=== PATIENT | female | born 1950 | race Caucasian/White ===

== ENCOUNTER → 2021-09-01 11:33 | Outpatient (CLI) | payer MEDICARE, OTHER, SELFPAY | PROVIDERS: PCP Physician Assistant; Referring Provider Physician Assistant; Visit Provider Physician Assistant | DX: Z13.820 Encounter for screening for osteoporosis; Z78.0 Asymptomatic menopausal state; M81.0 Age-related osteoporosis without current pathological fracture; Z79.890 Hormone replacement therapy; Z90.710 Acquired absence of both cervix and uterus | CPT/HCPCS: 77080 ==

== ENCOUNTER → 2021-09-12 13:00 | Outpatient (CLI) | payer MEDICARE, OTHER, SELFPAY ==
--- NOTE | 2021-09-12 | DI.CT.S_ITS ---
PROCEDURE: CT SOFT TISSUE NECK W CON INDICATIONS: Localized swelling, mass and lump, unspecified TECHNIQUE: After the administration of intravenous contrast, 3.0 mm axial sections acquired from the sella to the aortic arch. Additional oblique axial 3.0 mm sections acquired through the pharynx. 3 mm thick coronal and sagittal reformats were generated. For radiation dose reduction, the following was used: automated exposure control. COMPARISON: None. FINDINGS: Image quality: Excellent. Lymph nodes: There is a conglomerated group of lymph nodes seen within the right supraclavicular region that measures at least 5.8 x 3.6 cm in greatest axial dimension. There is partial visualization of mediastinal lymph nodes, with a group seen within the right superior mediastinum measuring 4.3 x 3 cm. Mild mass effect of is seen upon the trachea, which is slightly deviated to the left. Vessels: Visualized vasculature appears patent. Neck spaces: The oropharynx, nasopharynx, and pharynx demonstrate no mucosal lesions. The vocal cords, false vocal cords, pyriform sinuses, epiglottis, vallecula, and tongue base all appear normal. Extramucosal spaces appear unremarkable. Glands: The parotid and submandibular glands appear normal. Thyroid gland demonstrates no significant abnormality. Miscellaneous: Visualized brain and orbits appear normal. Lung apices appear clear. Superficial soft tissues appear normal. Bones: No suspicious bony lesions. Visualized sinuses and mastoids appear unremarkable. [id number] cervical spine degenerative changes are seen. IMPRESSION: Metastatic lymph nodes until proven otherwise within the right supraclavicular region and partially visualized within the right superior mediastinum. In this patient with prior mastectomy, metastatic breast cancer is considered to be most likely. Please consider additional workup, beginning with a CT with IV and oral contrast of the chest, abdomen, and pelvis. Dictated by: Saran Lezama M.D. on 09/12/2021 at 15:55 Approved by: Saran Lezama M.D. on 09/12/2021 at 15:58
--- NOTE | 2021-09-12 13:06 | DI.CT.S_ITS ---
PROCEDURE: CT CHEST W CON INDICATIONS: Localized swelling, mass and lump, unspecified TECHNIQUE: After the administration of intravenous contrast, 5 mm thick sections acquired from the pulmonary apices to the posterior costophrenic angles. 1 mm axial lung, 5 mm thick coronal and sagittal reformats and 7 mm axial MIP were acquired. For radiation dose reduction, the following was used: automated exposure control, adjustment of mA and/or kV according to patient size. COMPARISON: None. FINDINGS: Image quality: Excellent. Lungs and pleura: Mild leftward deviation of the mid trachea due to adenopathy. Mild central bronchial wall thickening bilaterally. No dense alveolar opacities. Irregular interstitial thickening and nodularity present in the medial right upper lobe. There are few calcified nodules in the right middle lobe and occasionally in the left lung. Platelike atelectatic changes posteriorly at both lung bases. No pleural effusions Mediastinum: The heart size is normal. There is a small anteriorly layering pericardial effusion or pericardial thickening. Aortic valvular calcification and mild coronary artery calcification. There is bulky right mediastinal adenopathy. Right hilar and subcarinal adenopathy are also present. Scattered calcifications within lymph nodes are seen. Suzy mass extends within the superior mediastinum to partially surround right brachiocephalic and left common carotid artery. There is mass effect on the superior vena cava causing narrowing. The aortic arch demonstrates moderate atherosclerotic calcification. Pulmonary arteries are normal caliber. The esophagus is normal without hiatal hernia. Bones and chest wall: There is bulky adenopathy at the right supraclavicular region with a masslike conglomeration of lymph nodes together measuring about 5.5 x 3.4 cm there is mass-effect on the adjacent vasculature, right thyroid lobe, and minimal mass effect on the trachea. There is also high right paratracheal lymph node measuring 1.5 cm in short axis. No axillary adenopathy. Venous varices along the anterior left upper chest. No suspicious bone lesions seen. Abdomen: Numerous calcifications are present in the spleen and occasional calcifications seen in the liver. Heavy atherosclerotic calcification of the aorta and branch arteries. IMPRESSION: 1. Bulky right supraclavicular, mediastinal, and right hilar adenopathy. Given recent diagnosis of neoplasm, metastatic disease is most likely. 2. Coarse nodular calcifications, granulomas in the spleen, liver, and both lungs suggesting exposure to prior granulomatous disease. 3. Small pericardial effusion. 4. Nonspecific reticulonodular focus in the medial right upper lobe. Continued attention to this area on subsequent scans is recommended. 5. Mild bronchial wall thickening. Correlate with acute or chronic bronchitis. Dictated by: Felipa Machado M.D. on 09/12/2021 at 18:19 Approved by: Felipa Machado M.D. on 09/12/2021 at 18:32
== END ==
PROVIDERS: PCP Internal Medicine; Referring Provider Physician Assistant; Visit Provider Physician Assistant
DX: C77.0 Secondary and unspecified malignant neoplasm of lymph nodes of head, face and neck (principal); C80.1 Malignant (primary) neoplasm, unspecified; M47.812 Spondylosis without myelopathy or radiculopathy, cervical region; M54.2 Cervicalgia; R93.89 Abnormal findings on diagnostic imaging of other specified body structures; Z90.10 Acquired absence of unspecified breast and nipple
CPT/HCPCS: 70491; 71260

== ENCOUNTER → 2021-09-26 11:19 | Outpatient (CLI) | payer MEDICARE, OTHER, SELFPAY ==
[2021-09-26 12:00] LABS: COVID19 -Nasal RAPID Negative (Negative)
== END ==
PROVIDERS: Family Provider Physician Assistant; PCP Internal Medicine; Visit Provider Surgery
DX: Z20.822 Contact with and (suspected) exposure to COVID-19 (principal); Z01.812 Encounter for preprocedural laboratory examination
CPT/HCPCS: 87635; C9803

== ENCOUNTER 2021-09-27 12:25 | Day surgery (SDC) | payer MEDICARE, OTHER, SELFPAY ==
[2021-09-27] VITALS (7 sets, daily range): BP systolic 117–162; BP diastolic 50–63; PULSE 60–73; RESP 14–16; TEMP 36.3–36.6; O2SAT 94–98; BMI 21.6
--- NOTE | 2021-09-27 | PATH_ITS ---
[facility] Accession Number: [id number] No. of containers..02 Tissue 04 Unknown Storage/container code(s) . 01 Material submitted: . PART A: lymph node - RIGHT NECK LYMPH NODE FORMALIN PART B: lymph node - RIGHT NECK LYMPH NODE B-FIX . 01 Clinical history: . EXCISIONAL BX OF R NECK LYMPH NODE . 01 Diagnosis: A. Lymph Node, Right Side of Neck, Excisional Biopsy: Metastatic high-grade neuroendocrine carcinoma (see comment). . B. Lymph Node, Right Side of Neck, Excisional Biopsy: Metastatic high-grade neuroendocrine carcinoma (see comment). [facility] 10/05/2021 1521 Local . 01 Comment: Both of the specimens A and B show similar morphologic features consisting of a small cell undifferentiated malignancy with extensive crush artifact and individual tumor cell necrosis. *Immunostains are performed on blocks A and B, with the controls stained appropriately. The tumor shows the following results: . Block A: Synaptophysin: Uniformly positive. CD56: Uniformly positive. TTF1: Focaly positive. . Block B: Broad spectrum cytokeratins (PATTI): Uniformly positive, perinuclear dot-like pattern. Cytokeratin 7: Uniformly positive, perinuclear dot-like pattern. Cytokeratin 20: Negative. Ki-67: Approximately 50%. P40: Negative. GATA3: Negative. Estrogen receptor: Negative. PAX-8: Negative. CDX2: Negative. . These results, in conjunction with the morphologic features, are considered supportive of the interpretation of a high-grade neuroendocrine carcinoma. Specifically, this impression is based on the pattern of staining seen with PATTI and cytokeratin 7 in conjunction with high level coexpression of the neuroendocrine markers synaptophysin and CD56. In this case, expression with the lung marker TTF1 raises the suspicion for origin from a lung primary; however, it is worthy to note that TTF1 loses specificity in the setting of neuroendocrine neoplasms and may not be indicative of pulmonary origin. Furthermore, there is no evidence for metastatic deposit from the patient's reported breast carcinoma (negative GATA3/ER) and there is no evidence for a metastatic carcinoma from gastrointestinal tract (negative CDX2) or [employer] tract (negative PAX-8). Also, there is no evidence for squamous differentiation (negative p40). . The results of this case are verbally provided by Dr. Liriano to medical collections specialist Olamide on 10/05/2021 at 1:00 p.m. . * This test was developed and its performance characteristics determined by [facility]. It has not been cleared or approved by the U.S. Food and Drug Administration. The FDA has determined that such clearance or approval is not necessary. This test is used for clinical purposes. It should not be regarded as investigational or for research. . 01 Electronically signed: . Selina Liriano MD, Pathologist NPI- [id number] . 01 Gross description: . A. Received in formalin in a specimen container, labeled with the patient's name and medical record number, right neck lymph node, is an aggregate of four irregularly shaped tabor soft tissue fragments that measure 1.5 x 1.3 x 0.4 cm. The specimen is entirely submitted in cassette A1. B. Received in formalin in a specimen container, labeled with the patient's name and medical record number, right lymph node, is an aggregate of four irregularly shaped pink soft tissue fragments that measure 1.2 x 0.7 x 0.4 cm. The specimen is entirely submitted in cassette B1. ([id number]) . Specimen in alcohol and two slides, respectively. Transferred to cytology for further processing. (KV:[id number]) /MRV 09/29/2021 [facility] Local . 01 Pathologist provided ICD-10: R59.1 . 01 CPT . 134662, 012280, Q04259, [id number] Performed at: 01 [facility] [address] [place] [address], [place], [place] [id number] MD Levi Savage MD Phone: [phone]
[2021-09-27] MEDS: LACTATED RINGERS 1,000 ML 100 ML IV (13:33)
--- NOTE | 2021-09-27 14:18 | PM.PREOP ---
Pre-operative Note Interval Note History & Physical reviewed/Exam performed by Physician: Yes Changes to H&P: No
[2021-09-27] MEDS: CEFAZOLIN 2 GM/20 ML SYRINGE IV (14:49)
--- NOTE | 2021-09-27 15:04 | SUR.OPER ---
Supine on padded OR bed, head on pillow, left arm secured on padded arm boards at <90 degrees abduction, right arm padded with gel and tucked, legs uncrossed, safety belt at thigh, tape over blanket over lower legs. directed and approved by surgeon
[2021-09-27] MEDS: BUPIVACAINE 0.5% (PF) VIAL 30 ML INJ (15:30)
--- NOTE | 2021-09-27 15:40 | PM.OP.1 ---
Operative Date/Time/Diagnoses Date of procedure: 09/27/21 Time of procedure: 15:40 Pre-op diagnosis: Cervical lymphadenopathy Post-op diagnosis: same Procedure & Clinicians Procedure: Excisional biopsy of left cervical lymph node. Same procedure as scheduled: Yes Indications: Enlarging right cervical and supraclavicular lymphadenopathy of unknown etiology Surgeon: Chuck Castro Click Yes if Unassisted: Yes Anesthesia Type: General Operative Notes Findings: Necrotic superficial cervical lymph nodes Specimen(s): other (Right cervical lymph nodes) Estimated Blood Loss (mL): 30 Procedure in detail: Patient was brought to the operating room placed supine on the table. Bilateral lower extremity compression devices were applied. Patient was then positioned into the supine position and appropriately padded. Time-out was performed. She was prepped and draped in sterile fashion. A horizontal incision was made on the neck towards the based on the right-hand side. The lymph nodes were readily palpable. The platysma was incised and the base of the neck was exposed. There was a prominent superficial cervical lymph node that was pathologically and large. It was necrotic and crumbled with grasping. Hemoclips were used for hemostasis and for dividing the lymphatic tissue. The lymph node was then X excised and passed off the field as specimen. The wound was irrigated and this returned clear. The platysma was then closed in running fashion followed by the skin with 4-0 Monocryl. Patient tolerated the procedure well was transferred to recovery in stable condition. Complications: none Post-operative Condition: stable Disposition: same day surgery
[2021-09-27] MEDS: HYDROCODONE/ACET 5/325 TABLET 1 TAB PO (16:09)
== END 2021-09-27 16:35 | disposition home or self-care (01) ==
PROVIDERS: Family Provider Physician Assistant; PCP Internal Medicine; Referring Provider Surgery; Visit Provider Surgery
PROC: (CPT 38500; principal; 2021-09-27 14:15)
DX: C77.0 Secondary and unspecified malignant neoplasm of lymph nodes of head, face and neck (principal); F17.210 Nicotine dependence, cigarettes, uncomplicated
CPT/HCPCS: 38500; 82962; J0690; J2704; J3010

== ENCOUNTER → 2021-10-26 13:10 | Outpatient (CLI) | payer MEDICARE, OTHER, SELFPAY ==
--- NOTE | 2021-10-26 13:11 | DI.MRI.S_ITS ---
PROCEDURE: MR HEAD/BRAIN WO/W CON INDICATIONS: small cell lung cancer TECHNIQUE: Noncontrast axial T1 spin echo, axial T2 fast spin echo, sagittal and axial FLAIR, axial gradient echo, axial diffusion and ADC, coronal thin-slice T2 FSE through the brain. Optional contrast, followed by axial and coronal and sagittal 3D VIBE or T1 spin echo with fat saturation sequences through the brain. COMPARISON: [facility], [place], [place] PET CT FUSION SKULL 2 THIGH, 10/25/2021, 10:53. [facility], CT, CT SOFT TISSUE NECK W CON, 09/12/2021, 13:10. [facility], CT, CT CHEST W CON, 09/12/2021, 13:10. FINDINGS: Image quality: Excellent. CSF spaces: Ventricles are normal in size and shape. Basal cisterns are patent. No extra-axial fluid collections. Brain: No intracranial bleeds or mass effects. No abnormal intracranial enhancement. Marquez-white matter interface appears intact. Diffusion weighted images demonstrate no acute ischemic insults. Brainstem appear normal. Normal intravascular flow voids are present. The hippocampal regions appear normal and symmetric in morphology. Skull and face: Numerous irregularly enhancing foci can be seen within the calvarium. Orbits appear normal. Note is made of bilateral lens replacements. Sinuses: Sinuses and mastoids are clear. IMPRESSION: No roseline parenchymal masses or abnormal enhancement can be seen. However, numerous irregularly enhancing areas can be seen within the calvarium. There is moderate suspicion for bony metastatic disease. - If clinically appropriate, please consider a follow-up whole-body nuclear medicine bone scan. Note is made of age-appropriate brain parenchymal volume loss and chronic small vessel ischemic changes. Dictated by: Saran Lezama M.D. on 10/26/2021 at 13:23 Approved by: Saran Lezama M.D. on 10/26/2021 at 13:26
== END ==
PROVIDERS: Family Provider Physician Assistant; PCP Internal Medicine; Referring Provider Internal Medicine Hematology & Oncology; Visit Provider Internal Medicine Hematology & Oncology
DX: C34.90 Malignant neoplasm of unspecified part of unspecified bronchus or lung; C77.8 Secondary and unspecified malignant neoplasm of lymph nodes of multiple regions; R51.9 Headache, unspecified; M89.9 Disorder of bone, unspecified
CPT/HCPCS: 70553; 99214

== ENCOUNTER → 2021-10-31 10:48 | Outpatient (CLI) | payer MEDICARE, OTHER, SELFPAY ==
[2021-10-31 12:07] LABS: COVID19 -Nasal RAPID Negative (Negative)
== END ==
PROVIDERS: Family Provider Physician Assistant; PCP Internal Medicine; Visit Provider Surgery
DX: Z20.822 Contact with and (suspected) exposure to COVID-19 (principal); Z01.812 Encounter for preprocedural laboratory examination
CPT/HCPCS: 87635; C9803

== ENCOUNTER 2021-11-01 14:19 | Day surgery (SDC) | payer MEDICARE, OTHER, SELFPAY ==
[2021-10-27 07:16] VITALS: BMI 21.1
[2021-11-01] VITALS (7 sets, daily range): BP systolic 126–148; BP diastolic 47–60; PULSE 77–84; RESP 11–19; TEMP 36.2–36.6; O2SAT 90–97; BMI 20.6
--- NOTE | 2021-11-01 | DI.RAD.S_ITS ---
PROCEDURE: XR CHEST 1V INDICATIONS: PORT PLACEMENT TECHNIQUE: One view of the chest was acquired. COMPARISON: [facility], CT, CT CHEST W CON, 09/12/2021, 13:10. FINDINGS: Surgical changes and devices: Left-sided port a catheter is present, tip of which is in the left brachiocephalic vein. There is a loop within the left inferior neck. Lungs and pleura: Lungs are clear. No pleural effusions or pneumothorax. Mediastinum: Right paratracheal adenopathy is present, as before. Heart size is normal. Bones and chest wall: No suspicious bony lesions. Overlying soft tissues appear unremarkable. IMPRESSION: 1. Port placement as above. 2. Right paratracheal adenopathy. Dictated by: Leola Reyna M.D. on 11/01/2021 at 17:53 Approved by: Leola Reyna M.D. on 11/01/2021 at 17:54
--- NOTE | 2021-11-01 15:37 | PM.PREOP ---
Pre-operative Note Interval Note History & Physical reviewed/Exam performed by Physician: Yes Changes to H&P: No
[2021-11-01] MEDS: CEFAZOLIN 2 GM/100 ML PREMIX 100 ML IV (16:00)
[2021-11-01] MEDS: BUPIVACAINE 0.5% MDV 50 ML INJ (16:15)
[2021-11-01] MEDS: HEPARIN 5,000 UNIT, SODIUM CHLORIDE 0.9% 50 ML IV (16:16)
--- NOTE | 2021-11-01 16:18 | SUR.OPER ---
Supine on padded OR bed, head on pillow, arms padded and tucked at sides, legs uncrossed, safety belt at thigh, tape over blanket over lower legs .
--- NOTE | 2021-11-01 16:50 | P.OP_ITS ---
Operative Date/Time/Diagnoses Date of procedure: 11/01/21 Time of procedure: 16:50 Pre-op diagnosis: Small cell lung cancer Post-op diagnosis: same Procedure & Clinicians Procedure: Port-A-Cath placement Same procedure as scheduled: Yes Indications: Metastatic small cell lung cancer Surgeon: Chuck Castro Click Yes if Unassisted: Yes Anesthesia Type: General Operative Notes Findings: Port flushes and draws easily. Tip of the catheter projects into the SVC Specimen(s): none sent Estimated Blood Loss (mL): 50 Procedure in detail: Patient was brought to the operating room placed supine on table. Bilateral lower extremity compressive devices were applied. General anesthesia was induced and he was intubated with an LMA. she was then prepped and draped in usual sterile fashion. Time-out was performed ensure the correct patient procedure necessary equipment within the operating room. She received 2 g of Ancef prior to incision. Under ultrasound guidance the left internal jugular vein was accessed under direct visualization. The guidewire was then threaded through the needle. Its placement was then confirmed using fluoroscopy. The dilator was then placed over the guidewire. The catheter was then inserted through the sheath. Placement was again confirmed with fluoroscopy. A s ubcutaneous pocket was made in the right chest wall. The tunneler device was used to move the catheter from the neck to the chest pocket. The port was attached after it was primed with heparined saline. The port was tested to ensure that it flushed easily and had good blood return. The port was then secured to the underlying fascia using interupted 0 Prolene suture. Hemostasis was achieved. The wound was irrigated with sterile saline. The subcutaneous tissues were reapproximated with the 3 0 Vicryl and then skin closed with 4-0 Monocryl. The skin was sealed with Dermabond. Patient tolerated procedure well. The sponge and instrument count at the end operation was correct. Patient emerged from general anesthesia was extubated and taken to the postoperative care unit in stable condition Complications: none Post-operative Condition: stable Disposition: same day surgery
--- NOTE | 2021-11-01 17:14 | SUR.PHASEI ---
c/o pain order obtained from Dr Diallo for pain med.
--- NOTE | 2021-11-01 17:16 | SUR.PHASEI ---
onel obtained and read by dr guardado.
[2021-11-01] MEDS: OXYCODONE IR 5 MG TABLET PO (17:22)
--- NOTE | 2021-11-01 17:55 | SUR.PHASEII ---
Pt A&Ox4, reports pain as tolerable, vss, dressing c/d/i and ready to discharge home. Instructions reviewed with pt and time allowed for questions. Pt left unit via w/c with PTCA assist to ER entrance where daughter will transport pt home.
== END 2021-11-01 17:45 | disposition home or self-care (01) ==
PROVIDERS: Family Provider Physician Assistant; PCP Internal Medicine; Referring Provider Surgery; Visit Provider Surgery
PROC: (CPT 36561; principal; 2021-11-01 15:45)
DX: C34.90 Malignant neoplasm of unspecified part of unspecified bronchus or lung (principal); J44.9 Chronic obstructive pulmonary disease, unspecified; K21.9 Gastro-esophageal reflux disease without esophagitis; I12.9 Hypertensive chronic kidney disease with stage 1 through stage 4 chronic kidney disease, or unspecified chronic kidney disease; N18.9 Chronic kidney disease, unspecified; I25.10 Atherosclerotic heart disease of native coronary artery without angina pectoris; I25.2 Old myocardial infarction; I73.9 Peripheral vascular disease, unspecified; M79.7 Fibromyalgia; F32.A Depression, unspecified; F17.200 Nicotine dependence, unspecified, uncomplicated; Z86.73 Personal history of transient ischemic attack (TIA), and cerebral infarction without residual deficits
CPT/HCPCS: 36561; 71045; 76000; 82962; J0690; J1100; J1644; J2405; J2704; J3010